=== PATIENT | male | born 1970 | race Caucasian/White ===

== ENCOUNTER 2017-06-13 07:45 | Emergency (ER) | payer BC ==
[2017-06-13 07:50] VITALS: BP 126/65; PULSE 63; RESP 18; TEMP 97.7; O2SAT 94
--- NOTE | 2017-06-13 07:52 | EDPHY ---
H & P Time Seen by Provider: 06/13/17 07:51 HPI/ROS: CHIEF COMPLAINT: Severe left flank pain HISTORY OF PRESENT ILLNESS: Patient had left flank pain 20 years ago which resolved and then again a couple of months ago. He has never officially had a diagnosis of kidney stones. His father is a history of kidney stones. He awakened at 4:00 a.m. today with severe left flank pain which radiated around to his left lower abdomen associated with some pain in his penis and a feeling of urinary urgency but unable to fully empty his bladder. No dysuria, no fever or chills, no testicular symptoms. No recent fall injury or trauma. He had severe pain at home but on the way here at things completely resolved. REVIEW OF SYSTEMS: Eye: no change in vision ENT: no sore throat Cardiac: no chest pain or syncope Pulmonary: no cough or SOB Abdomen: HPI, vomited once at home. Musculoskeletal: no back pain Skin: Blisters on his feet from [employer] otherwise negative Neuro: no headache Constitutional: no fever : HPI A comprehensive 10 point review of systems is otherwise negative aside from elements mentioned in the history of present illness. PAST MEDICAL HISTORY: Karlene's Social history: Primary care is Zaynab Houston General Appearance: Alert and conversant, cooperative. Eyes: No scleral icterus. ENT, Mouth: Normal mucous membranes. Respiratory: Normal respiratory effort, breath sounds equal, lungs are clear to auscultation. Cardiovascular: Regular rate and rhythm. Gastrointestinal: Abdomen is soft and non tender. No rebound or guarding. No masses palpated. Male normal. Neurological: Alert and oriented x3. Normally conversant. Face symmetric, normal movement and sensation in all extremities. Ambulatory from triage into the room without ataxia. Skin: No zoster on the left flank. Musculoskeletal: No spinal tenderness. Psychiatric: Not agitated. Emergency Department course/MDM: Urine dip positive for blood. No infection. Bladder scan performed and no evidence of urinary retention. I discussed with the patient that I think the most likely explanation is that he had a kidney stone that passed. Since he is currently asymptomatic I do not think emergent imaging is required. His urine dip would suggest hematuria but no infection. Strain urine, and bring any stone caught to his primary care physician. Patient and family state understanding and agreement with the plan. Smoking Status: Never smoked Constitutional: Initial Vital Signs Temperature (C) 36.5 C 06/13/17 07:48 Heart Rate 63 06/13/17 07:48 Respiratory Rate 18 06/13/17 07:48 Blood Pressure 126/65 H 06/13/17 07:48 O2 Sat (%) 94 06/13/17 07:48 O2 Delivery Mode Room Air Allergies/Adverse Reactions: Penicillins Allergy (Verified 06/13/17 07:48) Home Medications: Medication Instructions Recorded NK [No Known Home Meds] 06/13/17 Medical Decision Making Differential Diagnosis: Differential considered including but not limited to renal colic, zoster, aortic aneurysm or dissection, appendicitis, diverticulitis, testicular torsion. Departure - Departure Disposition: Home, Routine, Self-Care Clinical Impression: Renal colic on left side Condition: Good Instructions: Renal Colic (ED) Additional Instructions: Strain urine as directed. You probably passed a left-sided kidney stone. Bring any stone that you collect to your primary care physician for analysis. Return for recurrent severe pain that does not go way. Referrals: Zaynab Houston MD [Primary Care Provider] - As per Instructions
== END 2017-06-13 08:30 | disposition home or self-care (01) ==
DX: N23 Unspecified renal colic (principal)

== ENCOUNTER → 2018-05-20 | Outpatient (CLI) | payer BC | LOC: FIMAGING 09:37 | PROVIDERS: ATTEND Family Medicine Sports Medicine | DX: M22.2X1 Patellofemoral disorders, right knee (principal) ==

== ENCOUNTER → 2018-05-23 | Outpatient (CLI) | payer BC | LOC: FIMAGING 09:03 | PROVIDERS: ATTEND Family Medicine Sports Medicine | DX: M23.206 Derangement of unspecified meniscus due to old tear or injury, right knee (principal); M23.306 Other meniscus derangements, unspecified meniscus, right knee; M71.21 Synovial cyst of popliteal space [Baker], right knee ==